=== PATIENT | female | born 1955 | race Caucasian/White ===

== ENCOUNTER → 2017-01-03 | Outpatient (CLI) | payer BC ==
[~2017-01-03] MED LIST: ADDERALL30 MG PO; PRILOSEC 20MG20 MG PO; ZONEGRAN 100MG100 MG PO
== END ==
LOC: MC.RAD 16:24
DX: Z12.31 Encounter for screening mammogram for malignant neoplasm of breast (principal)

== ENCOUNTER → 2024-01-23 | Outpatient (CLI) | payer MEDICARE, BC | LOC: COL.RAD 12:35 | DX: E04.2 Nontoxic multinodular goiter (principal) ==